=== PATIENT | male | born 1970 | race American Indian/Alaskan Native ===

== ENCOUNTER 2017-06-28 17:59 | Emergency (ER) | payer BC ==
[2017-06-28 18:17] VITALS: RESP 16; TEMP 80
--- NOTE | 2017-06-28 18:30 | ED PDOC ---
Arrival/HPI - General Chief Complaint: Lower Extremity Problem/Injury Time Seen by Provider: 06/28/17 18:22 Historian: Patient - History of Present Illness Narrative History of Present Illness (Text): 06/28/17 18:29 This 47 yo male presents to this ED c/o right ankle pain x 4 weeks. Patient stated his left ankle is mild painful for "couple of days". Patient was seen by Dr. Wesley Nguyen, Orthopedic doctor 3 weeks ago, who recommended Weightbearing ankle x-rays b/l. Patient brought prescription. Patient has an appointment to see his doctor tomorrow. Patient denies other complains. Time/Duration: < month Quality: Aching Context: Home Past Medical History - Provider Review Nursing Documentation Reviewed: Yes - Infectious Disease Hx of Infectious Diseases: None - Psychiatric Hx Substance Use: No - Surgical History Other/Comment: hernia repair Family/Social History - Physician Review Nursing Documentation Reviewed: Yes Family/Social History: Other (non-contributory) Smoking Status: Never Smoked Hx Alcohol Use: No Hx Substance Use: No Allergies/Home Meds Allergies/Adverse Reactions: Allergies No Known Allergies Allergy (Verified 06/28/17 18:16) Review of Systems - Review of Systems Constitutional: Normal. absent: Fatigue, Weight Change, Fevers Eyes: Normal ENT: Normal Respiratory: Normal Cardiovascular: Normal Gastrointestinal: Normal Genitourinary Male: Normal Musculoskeletal: Other (See HPI) Skin: Normal Neurological: Normal Endocrine: Normal Hemo/Lymphatic: Normal Psychiatric: Normal Physical Exam Vital Signs Temp Pulse Resp BP Pulse Ox 06/28/17 18:06 80 F L 86 16 132/84 96 Temperature: Afebrile Blood Pressure: Normal Pulse: Regular Respiratory Rate: Normal Appearance: Positive for: Well-Appearing, Non-Toxic, Comfortable Pain Distress: None Mental Status: Positive for: Alert and Oriented X 3 - Systems Exam Head: Present: Atraumatic, Normocephalic Pupils: Present: PERRL Extroacular Muscles: Present: EOMI Conjunctiva: Present: Normal Mouth: Present: Moist Mucous Membranes Neck: Present: Normal Range of Motion Upper Extremity: Present: Normal Inspection, Normal ROM Lower Extremity: Present: NORMAL PULSES, Normal ROM, Neurovascularly Intact, Capillary Refill < 2 s, Other ((+) righ ankle is mild swollen and mild tenderness. Selby test is negative b/l. No erythema, or ecchymosis.). No: Edema, CALF TENDERNESS Neurological: Present: GCS=15, CN II-XII Intact, Speech Normal, Motor Func Grossly Intact, Normal Sensory Function, Normal Cerebellar Funct, Gait Normal Skin: Present: Warm, Dry, Normal Color. No: Rashes Psychiatric: Present: Alert, Oriented x 3, Normal Insight, Normal Concentration Medical Decision Making ED Course and Treatment: 06/28/17 19:55 Re-evaluation. Patient feels better. Discussed results and plan with patient who expresses understanding. Counseling was provided regarding the diagnosis and prognosis. All questions answered and there is agreement with the plan to discharge home with instructions. Patient stable for discharge. Return if symptoms persist or worsen. Refused pain medication in ED. Requested Naproxen Re-evaluation Time: 19:56 Reassessment Condition: Re-examined, Improved - RAD Interpretation Narrative RAD Interpretations (Text): 06/28/17 19:56 B/L ankle x-rays: DJD. No Fx. Radiology Orders: 06/28/17 18:28 ANKLE LEFT 3 VIEWS ROUTINE [RAD] Stat ANKLE RIGHT 3 VIEWS ROUTINE [RAD] Stat Disposition/Present on Arrival - Present on Arrival Any Indicators Present on Arrival: No History of DVT/PE: No History of Uncontrolled Diabetes: No Urinary Catheter: No History of Decub. Ulcer: No History Surgical Site Infection Following: None - Disposition Have Diagnosis and Disposition been Completed?: Yes Diagnosis: Bilateral ankle pain Disposition: HOME/ ROUTINE Disposition Time: 19:57 Patient Plan: Discharge Condition: GOOD Discharge Instructions (ExitCare): Arthralgia (ED) Additional Instructions: Call private orthopedist office for follow up visit in 1-2 days. Take medication as instructed with food. Return to emergency if pain worsen. Prescriptions: Naproxen 500 mg PO BID PRN #14 tab PRN Reason: Pain, Severe (8-10) Forms: [employer] (E[place]ian)
[2017-06-28 20:05] VITALS: BP 134/80; PULSE 77; O2SAT 100
--- NOTE | 2017-06-29 07:27 | RAD ---
PROCEDURE: Left Ankle Radiographs. HISTORY: pain COMPARISON: None FINDINGS: BONES: No evidence of acute fracture. Smooth ossific density inferior to medial malleolus may represent old ununited fracture fragment versus accessory ossification center. JOINTS: Normal. No osteoarthritis. Ankle mortise maintained. Talar dome intact SOFT TISSUES: Normal. OTHER FINDINGS: None. IMPRESSION: No acute fracture.
--- NOTE | 2017-06-29 07:28 | RAD ---
PROCEDURE: Right Ankle Radiographs. HISTORY: pain COMPARISON: Left ankle 06/28/2017 FINDINGS: BONES: No acute fracture. Multiple smooth ossific densities inferior to medial malleolus likely representing ununited secondary ossification centers. JOINTS: Normal. No osteoarthritis. Ankle mortise maintained. Talar dome intact SOFT TISSUES: Normal. OTHER FINDINGS: None. IMPRESSION: No acute fracture.
== END 2017-06-28 20:06 | disposition home or self-care (01) ==
LOC: ED 17:59
DX: M25.572 Pain in left ankle and joints of left foot (principal); M25.571 Pain in right ankle and joints of right foot